=== PATIENT | female | born 1985 | race African-American/Black ===

== ENCOUNTER 2018-02-05 10:25 | Emergency (ER) | payer OTHER ==
[~2018-02-05] VITALS: Ht 162.6 cm; Wt 80.5 kg
[2018-02-05] MEDS ORDERED: TETRACAINE 0.5% OPHTH DROPS 4ML RIGHTEYE ONE (11:15)
[2018-02-05] MEDS ORDERED: FLUORESCEIN SODIUM 1MG/STRIP RIGHTEYE ONE (11:15)
[2018-02-05] MEDS ORDERED: TOBRAMYCIN 0.3% OPHTH DROPS 5ML OP SCH (11:30)
[2018-02-05 12:19] VITALS: BP 160/92
== END 2018-02-05 12:22 | disposition home or self-care (01) ==
LOC: ER 11:41
DX: S05.01XA Injury of conjunctiva and corneal abrasion without foreign body, right eye, initial encounter (principal); X58.XXXA Exposure to other specified factors, initial encounter; Y93.89 Activity, other specified; Y92.89 Other specified places as the place of occurrence of the external cause; Y99.8 Other external cause status
CPT/HCPCS: 99283

== ENCOUNTER 2025-01-13 08:12 | Emergency (ER) | payer SELFPAY ==
[~2025-01-13] VITALS: Ht 172.7 cm; Wt 80.0 kg
[2025-01-13 08:17] VITALS: O2SAT 100
[2025-01-13] MEDS: FLUORESCEIN SODIUM 1MG/STRIP BOTHEYE ONE (08:32)
[2025-01-13] MEDS: TETRACAINE 0.5% OPHTH DROPS 4ML BOTHEYE ONE (08:32)
[2025-01-13] MEDS ORDERED: ERYT1OIN6 EACHEYE (08:42)
[2025-01-13] MEDS: IBUPROFEN 600MG TABLET PO ONE (08:52)
[2025-01-13 08:54] VITALS: BP 140/111; PULSE 94; RESP 16; TEMP 37.2; O2SAT 100
== END 2025-01-13 08:58 | disposition home or self-care (01) ==
LOC: ER 08:12
DX: S05.02XA Injury of conjunctiva and corneal abrasion without foreign body, left eye, initial encounter (principal); Z88.5 Allergy status to narcotic agent; Z79.899 Other long term (current) drug therapy; X58.XXXA Exposure to other specified factors, initial encounter; Y93.89 Activity, other specified; Y92.89 Other specified places as the place of occurrence of the external cause; Y99.8 Other external cause status
CPT/HCPCS: 99283